=== PATIENT | male | born 1975 | race Two or more races ===

== ENCOUNTER → 2016-10-22 | Outpatient (CLI) | payer OTHER ==
[~2016-10-22] MED LIST: HYDR12.58 PO
--- NOTE | 2016-10-22 11:43 | RAD ---
Chest radiograph 10/22/2016 at 1128 hours Indication: Difficulty breathing Comparison: Chest radiograph 04/05/2013 Technique: PA and lateral views of the chest are provided. Findings: Cardiomediastinal silhouette is within normal limits. No pleural effusions, pulmonary vascular congestion or pneumothorax. The lungs are clear. Osseous structures are normal. Impression: No acute cardiopulmonary process.
--- NOTE | 2016-10-22 11:48 | RAD ---
Lumbar spine radiographs 10/22/2016 Indication: Low back pain Comparison: None available Technique: 2 views of the lumbar spine are provided Findings: There are 5 non rib-bearing lumbar type vertebral bodies. Alignment of the lumbar spine is normal. There is no significant disc space narrowing. No evidence for spondylolysis or spondylolisthesis. No acute fracture. No significant soft tissue abnormality identified. Impression: No acute fracture or malalignment of the lumbar spine.
== END | disposition home or self-care (01) ==
LOC: RAD 10:47
PROVIDERS: ATTEND Internal Medicine Infectious Disease
DX: M54.5 Low back pain (principal); R06.00 Dyspnea, unspecified
CPT/HCPCS: 71020; 72100